=== PATIENT | male | born 1965 | race Caucasian/White ===

== ENCOUNTER 2022-09-26 10:36 | Outpatient (CLI) | payer BC, SELFPAY ==
[2022-09-26 21:32] LABS: Albumin* 4.4 g/dL (3.3-5.0); Chloride* 99 mmol/L (96-114); Potassium* 4.6 mmol/L (3.6-5.1); Sodium* 134 mmol/L (135-149)
[2022-09-26 21:34] LABS: Bilirubin Total* 1.6 mg/dL (0.1-1.5); Creatinine* 0.6 mg/dL (0.5-1.5); Estimated Glomerular Filt Rate 113 ml/min
[2022-09-26 21:35] LABS: Alanine Aminotransferase* 43 U/L (4-50); Alkaline Phosphatase* 68 U/L (40-150); Aspartate Amino Transferase* 46 U/L (12-35); Blood Urea Nitrogen* 13 mg/dL (7-30); Calcium* 9.2 mg/dL (8.4-10.6); Carbon Dioxide* 26 mmol/L (20-32); Total Protein* 7.8 g/dL (6.0-8.3)
[2022-09-26 21:37] LABS: Creatinine Urine 46.9 mg/dL
[2022-09-26 21:41] LABS: Microalbumin Creatinine Ratio 40 mg/g (0-30); Microalbumin Urine 2 mg/dL
[2022-09-26 21:51] LABS: Glucose* 361 mg/dL (60-115)
== END 2022-09-26 10:37 | disposition home or self-care (01) ==
PROVIDERS: PCP Physician Assistant Medical; Visit Provider Family Medicine
DX: E11.8 Type 2 diabetes mellitus with unspecified complications (principal); E78.5 Hyperlipidemia, unspecified; I10 Essential (primary) hypertension; R10.9 Unspecified abdominal pain
CPT/HCPCS: 80053; 82043; 82570

== ENCOUNTER 2022-10-01 11:10 | Outpatient (CLI) | payer BC, SELFPAY ==
--- NOTE | 2022-10-01 10:45 | CRLHL7_ITS ---
For Patients: As a result of the Century Cures Act, medical imaging exams and procedure reports are released immediately into your electronic medical record. You may view this report before your referring provider. If you have questions, please contact your health care provider. Indication: RUQ abdominal pain Technique: Abdomen 2 view. Comparison: 09/26/2022 Findings: Bowel: Bowel pattern is normal. The amount of colonic stool is moderate. Other: No sign of free air. No sign of soft tissue mass. No suspicious calcifications. Osseous structures are unremarkable for age. Gallbladder absent. Impression: Moderate stool within the colon, slightly diminished since the prior study. Dictated by Hardy Babin MD @ 10/01/2022 12:03:21 PM (Electronically Signed)
--- NOTE | 2022-10-01 10:45 | CRLHL7_ITS ---
For Patients: As a result of the Century Cures Act, medical imaging exams and procedure reports are released immediately into your electronic medical record. You may view this report before your referring provider. If you have questions, please contact your health care provider. INDICATION: Right upper quadrant pain COMPARISON: none TECHNIQUE: Real time rodriguez scale imaging and color Doppler analysis was performed of the right upper quadrant. FINDINGS: The liver is diffusely coarsened and echogenic. There is no intrahepatic mass or ascites. The visualized pancreas appears normal. The aorta and IVC are normal. The gallbladder is absent. No intrahepatic biliary obstruction. The right kidney is normal and measures 12.3 cm. The common bile duct is not visualized. IMPRESSION: Dense echogenic liver parenchyma compatible with hepatic steatosis. Gallbladder absent without biliary obstruction. Dictated by Hardy Babin MD @ 10/01/2022 11:58:24 AM (Electronically Signed)
== END 2022-10-01 11:11 | disposition home or self-care (01) ==
PROVIDERS: PCP Family Medicine; Visit Provider Family Medicine
DX: R10.84 Generalized abdominal pain (principal); E78.5 Hyperlipidemia, unspecified; I10 Essential (primary) hypertension; R80.9 Proteinuria, unspecified
CPT/HCPCS: 74019; 76705; 80053; 82248; 82977; 83690

== ENCOUNTER 2022-10-05 08:55 | Outpatient (CLI) | payer BC, SELFPAY ==
--- NOTE | 2022-10-05 09:15 | CRLHL7_ITS ---
For Patients: As a result of the Century Cures Act, medical imaging exams and procedure reports are released immediately into your electronic medical record. You may view this report before your referring provider. If you have questions, please contact your health care provider. Technique: Single-contrast Gastrografin enema performed. Fluoroscopy time 1 minutes 8 seconds. Indication: CONSTIPATION / ABDOMINAL PAIN Comparison: X-ray 10/01/2022, 09/26/2022 Findings: There is no obstruction to the passage of contrast through the colon. Excellent opacification of the appendix. Minimal colonic diverticulosis. No acute inflammation. Gallbladder absent. Near-complete clearing of contrast postvoid. Impression: No obstruction or inflammation. Mild colonic diverticulosis. Clearing of constipation. Dictated by Hardy Babin MD @ 10/05/2022 10:30:22 AM (Electronically Signed)
== END 2022-10-05 08:56 | disposition home or self-care (01) ==
LOC: RAD 08:55
PROVIDERS: PCP Family Medicine; Visit Provider Family Medicine
DX: R10.9 Unspecified abdominal pain (principal); K57.30 Diverticulosis of large intestine without perforation or abscess without bleeding; K59.00 Constipation, unspecified
CPT/HCPCS: 74270

== ENCOUNTER 2022-10-12 11:55 | Outpatient (CLI) | payer BC, SELFPAY ==
--- NOTE | 2022-10-12 13:35 | W.ANESCHARGE ---
Anesthesia Charges Start Date/Time Anesthesia Start Date: 10/12/22 Anesthesia Start Time: 12:46 Stop Date/Time Anesthesia Stop Date: 10/12/22 Anesthesia Stop Time: 13:17
== END 2022-10-12 11:56 | disposition home or self-care (01) ==
LOC: OP CLINIC 11:56
PROVIDERS: PCP Family Medicine; Visit Provider Internal Medicine
DX: R19.4 Change in bowel habit (principal)
CPT/HCPCS: 00811; 45380; 88305; J2704

== ENCOUNTER 2022-10-19 11:08 | Outpatient (CLI) | payer BC, SELFPAY | END 2022-10-19 11:09 | disposition home or self-care (01) | PROVIDERS: PCP Family Medicine; Visit Provider Family Medicine | DX: N39.0 Urinary tract infection, site not specified (principal) | CPT/HCPCS: 87086; 87186 ==

== ENCOUNTER 2022-11-08 11:30 | Outpatient (CLI) | payer BC, SELFPAY ==
--- OUTSIDE RECORDS SUMMARY | 2022-11-09 01:55 | XMS_ITS | Continuity of Care Document ---
:1965 Author Organization [facility] Address [address] [address] [place] [address] Phone Care Team Providers Name Role Phone Jose J Wyatt MD Unavailable Unavailable Allergies, Adverse Reactions, Alerts Substance Reaction Status Criticality No Known Allergies Active No Informatio n Medications Medication Instructions Dosage Effective Status Comments Dates (start - stop) Trulance 3 mg take 1 tablet by 3 MG - Active tablet oral route every day amitriptyline 10 mg take 1-2 tablet by - Activ e tablet oral route every bedtime atorvastatin 20 mg take 1 tablet by 20 MG - Active tablet oral route every day metoprolol take by oral route - Active succinate ER 25 mg 2 times every day tablet,extended release 24 hr losartan 100 mg take 1 tablet by 100 MG - Active tablet oral route every day metformin ER 1,000 take 2 tablet by 2000 MG - Active mg tablet,extended oral route every release 24hr day with the evening meal aspirin 81 mg take 2 tablet by 162 MG - Active tablet,delayed oral route every release day CoQ-10 100 mg take by oral route - Active capsule once daily SLEEP AID (unknown (12.5) take once Not Available - Activ e strength) by oral route daily multivitamin tablet take 1 softgel by - Active oral route daily DULCOLAX (unknown (100 mg) take 1-2 Not Available - Activ e strength) tablets by oral route every day as needed Miralax 17 take 1 dose by - Active gram/dose oral oral route every powder day powder mixed with 8 oz. water, juice, soda, coffee, or tea Linzess 72 mcg take 1 capsule by 72 MCG - No Longer capsule oral route every Active day on an empty stomach at least 30 minutes before 1st meal of the day Procedures Procedure Date Office Cons New/estab Mod Init Hosp-da E&m Mod Severity Sigmoidoscopy Flex; Dx (sep Pr Colonoscopy Flex; Dx (sep Pro) Moderate Sedation, Initial 15 minutes Colonoscopy Flex; W/remov Les- Ugi Endo; Dx W/wo Collec Specm Level Iv-surg Path Gross/micro Offic/outpt E&m Estab Mod-hi 2 Offic/outpt E&m Estab Mod-hi 2 Subsqt Hosp-da E&m Minr Compl Subsqt Hosp-da E&m Minr Compl Init Hosp-da E&m Mod Severity Advance Directives Directive Yes / No Effective Date File Name No Information Encounters Encounter Practice Location Reason(s) Diagnoses Date Provider Provide rs Description For Visit Copied on Encounter SELENE Lopez No Oct- Edmundo CHEN [facility] Information [facility]. [address] [place], [address] [place] [address], [address], [address], [place], [place], [place], [id number], [id number], [place]. tel:+ tel:[phone] SELENE Lopez No Mar-0 Edmundo CHEN [facility] Information [facility]. [address] [place], [address] [place] [address], [address], [address], [place], [place], [place], [id number], [id number], [place]. tel:[phone] tel:[phone] Office Cons SELENE Lopez GI Generalized Mar-0 Edmundo CHEN Referr ing New/estab [facility] Symptoms abdominal 2- Jose J. [address] kait: [facility], or painAcute 3 Shavonne Yessica [address], [facility] [place] [address], (chief [address], [place], [address] [place] complaint) [place], [address], [place], [place], [place], [place], [id number], [id number], [place], [address]. [place]. tel:[phone] tel: tel: [phone] [facility] [place] No Sep- Michael Kay [facility] Information 7- MD [address]. [address] [place], [address] [place] [address], [address], [place] [address], [place], [place], [place], [id number], [place], [place] [id number], tel: [place]. [phone] tel: [phone] Init Hosp-da [facility] [place] No Mauricio CHEN Referring E&m [facility] Information [address] Provid er: [facility], Hospital 7 [facility] [address], Kimberly CHEN [address], [address], [address], [address] [place], [address], [place], [place], [place], [place], [id number], [id number], [place], [address]. [place]. tel:[phone] tel: tel: [phone] [facility] [place] HIGI Abdominal Apr-3 Rod CHEN Referrin g [facility] PainColon [address] [place]. Provider: Health [place], [place] polypHemorrho 5 [address] Hardy Reeves aas, MD [address] [facility] [place], [address], [place] ColonHemorrho [address], [place], , [place], [place], [address] . [id number], neoplasm of [place], tel:[phone] [place] colon, [id number], 6161 tel: unspecifiedUn [place]. [phone] specified tel: hemorrhoidsUn [phone] specified abdominal pain [facility] Liver LLQ PainRUQ Apr-0 No Referrin g E&m Estab [facility] Symptoms PainNon-alcoh 2 Information P rovider: Mod-hi 2 Health [place], or olic Fatty 5 Hardy palacios MD [address] [place], [address], (chief Bleed/BRBPR [address], [place] complaint) [address], s, [place], [address]. [id number], tel:[phone] [place] [phone] tel:[phone] Offic[facility]outpt [facility] GI Non-alcoholic Oct-1 No Referr ing E&m Estab [facility] Symptoms Fatty Information Provide r: Mod-hi 2 Health PA, or LiverRUQ 5 Referral [address] PainLLQ Self. [address], (chief PainAbn Blood [place] complaint) Chemistry s, [place], [employer] [id number], Surveil/couns [place] tel:[phone] Subsqt [facility] [place] No December-0 No Referring Hosp-da E&m [facility] Information 5- Information Pr ovider: [facility], [facility] [address] [facility] [place] [address], [place], [address] [facility] [address], [place], [place], [place], [id number], [place], [address]. [place] tel:[phone] tel:[phone] Init Hosp-da [facility]IG[facility] [place] No Guille CHEN Referri ng E&m Mod [facility] Information 3- Kayden. Provider: [facility], [facility] [address] [place] [address], [address] [place], [place], [address] [place] [address], [address], [place], [place], [place], [address], [id number], [place], [address]. [place] [id number], tel:[phone] tel:[phone] [place]. [phone] tel:[phone] Family History Family Member Type Diagnosis Age At Onset Father Problem (finding) Heart disease (Cause Of ) Maternal grandfather Problem (finding) Mother Problem (finding) malignant neoplasm of uterus Sister Problem (finding) Alive and well Maternal grandfather Problem (finding) Liver disease (Cause Of D eath) Brother Problem (finding) malignant neoplasm of testis Father Problem (finding) Immunizations Vaccine Date Status Comments Influenza, injectable, Madin administered Not e: [facility] bi-directional Beth Canine Kidney, interface ; Source: Other preservative free, quadrivalent Registry SARS-COV-2 (COVID-19) vaccine, administered N ote: [facility] bi-directional mRNA, spike protein, LNP, interf kemi ; Source: Other preservative free, 30 mcg/0.3mL Registry dose, jackie-sucrose formulation SARS-COV-2 (COVID-19) vaccine, administered N ote: [facility] bi-directional mRNA, spike protein, LNP, interf kemi ; Source: Other preservative free, 30 mcg/0.3mL Registry dose SARS-COV-2 (COVID-19) vaccine, administered N ote: [facility] bi-directional mRNA, spike protein, LNP, interf kemi ; Source: Other preservative free, 30 mcg/0.3mL Registry dose SARS-COV-2 (COVID-19) vaccine, administered N ote: [facility] bi-directional mRNA, spike protein, LNP, interf kemi ; Source: Other preservative free, 30 mcg/0.3mL Registry dose Seasonal, quadrivalent, administered Note: IN IC bi-directional recombinant, injectable interfac e ; Source: Other influenza vaccine, preservative Registry free zoster vaccine recombinant administered Note: [facility] bi-directional interface ; Sour ce: Other Registry Afluria Qd administered Note: [facility] bi-directional interface ; Sour ce: Other Registry Afluria Qd administered Note: [facility] bi-directional interface ; Sour ce: Other Registry tetanus toxoid, reduced administered Note: IN IC bi-directional diphtheria toxoid, and acellular interface ; Source: Other pertussis vaccine, adsorbed Lolly stry Pneumo (2 yrs or older)(PPV) administered Not e: [facility] ; Source: Other Provider Payers Payer name Insurance type Covered constitution party ID Authorization(s ) Raimundo MAJOR [id number] Social History Type Description Quantity Date Captured Comments Alcohol Use Details Unknown Caffeine Use Details Unknown Tobacco Use Status No Information Smoking Status No Information Sex Male Chief Complaint And Reason For Visit No Information Reason For Referral Reason For Referral No Information Plan Of Treatment Date Type Action Status Goal Lifestyle education regarding di et completed Referral Ordered: ordered Abdomen and Pelvis CT WITH Contr ast Appointment date/timeframe: 11/05/2014 History Of Present Illness Encounter Date Complaint History Of Present I llness GI Symptoms or Concerns Mr. Moreira is her e at the request of Dr. Eubanks to disc uss abdominal symptoms that began in . He reports that prior to September 11, he had regular bowel movements and no GI distress. On the , he ate potato salad and got violently ill with significant vom iting and diarrhea. Ever since, he has h ad trouble. On the , he noted sudde n-onset severe left lower quadrant pain. He had a large nonbloody stool, but felt no better. The pain persisted and h e eventually went to Urgent Care and a CT scan did not show any significant findings . It was noted there that he had not take n any of his usual medications for diab etes or high blood pressure for over 2 years. He restarted them and the next da y felt so horrible with heart and blood pres sure issues that he went to the emergenc y room. A CT was repeated and again d id not show any significant GI sympt oms. He continued to struggle with signif icant constipation. He did GoLYTELY and had some returns, but no improvement in his Liver Symptoms or Concerns This 49-year- old gentleman returns for followup of multiple gastrointestinal complaints and rm rns. Please refer to my consultation done on 11/04/2014 for more details regarding hi s history.He has a history of diabetes with recent hemoglobin A1c of 8.3%. Lipid p anny earlier this month was normal aside fro m a slightly low HDL of 39. He had severe di ffuse hepatic steatosis noted on ultrasound recently and has had some modest elevatio ns in liver chemistries with an AST 67 and A LT of 112. The ultrasound also show ed probable small gallstone and otherw ise normal appearing gallbladder along wi th the common bile duct of 3 mm. He also had some mild splenomegaly at 15 cm. He complai ns of chronic left lower quadrant and r ight upper quadrant pain, which is unaff ected by eating or bowel movements. The pain is worse with position changes and movement, and at times can be so severe he feels he needs to go to the emergency room. He has also had some episodes of right up per quadrant darryl GI Symptoms or Concerns This gentleman p resents today for further evaluation of multip le concerns, including abdominal pain, abno rmal ultrasound, and elevated liver chemi stry tests. He states that for the past 3 to 4 weeks, he has had progressively worsen ing symptoms of right upper quadrant pain, which is unaffected by eating or bowel move ment. It is worse with position changes and can at times be severe. He has also had some intermittent low abdominal pain a nd what he describes as open side aches wh ich are also mainly affected by activity . He says that he has had short bouts of s imilar pains on and off over the years, but believes they have become more of a pro blem since his metformin and glybur erma doses were increased a year or so ago. His review of systems today indica horace he has had problems with altered bowel h abits, fecal incontinence, and na usea and vomiting. Upon further questioning, he states that these were symptoms that o ccurred last December when he was hospitalized with presumed ischemic co Functional Status Date Functional Assessment No Information Instructions Date Instruction Additional Informati on Colon Polyps Related to Hemorrhoi ds Hemorrhoids Related to Hemorrhoi ds High Fiber Diet Related to Hemorrhoi ds Colon Cancer Prevention Related to Hemor rhoids - Recommend colonoscopy and upper Relate d to Rectal Bleed/BRBPR endoscopy for further evaluation of your symptoms - You need to continue to work on your blood sugar control (as we discussed your hemoglobin A1c is 8.3%), weight loss, increased physical activity, and lower carbohydrate diet to treat the fatty liver disease. This will decrease the risk of progressing to cirrhosis and also decrease your risk of cardiovascular disease- If your colonoscopy and upper endoscopy are negative and you continue to have episodes of pain then may need to consider a HIDA scan (to look at the gallbladder) or possibly a surgical consultation Colonoscopy - Recommend continuing to work on good R elated to Non-alcoholic Fatty control of cholesterol/lipid levels Live r and blood sugars with your primary care provider- Work on weight loss, ideally at least 10% of your total body weight over the next 6 months - Low carbohydrate, insulin resistance diet. Recommend meeting with a miller head. If you decide you would like to do this let me know and I will make a referral- Will get a CT of your abdomen given your significant abdominal pain. We may need to consider additional testing, such as colonoscopy, pending those results- If you have increasing pain, blood in your stool, yellowing of the skin or eyes, or fevers then you need to be seen urgently in the ER or urgent care- Please discuss your concerns about ongoing chest discomfort and shortness of breath with your primary provider, who may wish to do further testing. Again, if you have increased symptoms you need to be seen in the ER Insulin Resistance Diet Folder Related t o Non-alcoholic Fatty Liver Non-alcoholic fatty liver Related to Non -alcoholic Fatty Liver Weight Management Related to Non-alcoh olic Fatty Liver Lifestyle education regarding diet Relat ed to Dietary surveillance and counseling Abdomen and Pelvis CT WITH Contrast Assessments Type Assessment Date No Information Patient Care Teams Name Effective Dates (start - stop) Status M embers No Information
== END 2022-11-08 11:31 | disposition home or self-care (01) ==
LOC: NFLDREF 11-09 01:54
PROVIDERS: PCP Family Medicine; Referring Provider Family Medicine; Visit Provider Family Medicine
DX: Z01.818 Encounter for other preprocedural examination (principal); R10.9 Unspecified abdominal pain; I10 Essential (primary) hypertension; E11.8 Type 2 diabetes mellitus with unspecified complications; E11.29 Type 2 diabetes mellitus with other diabetic kidney complication; R80.9 Proteinuria, unspecified; K59.00 Constipation, unspecified; K59.2 Neurogenic bowel, not elsewhere classified
CPT/HCPCS: 80048